=== PATIENT | female | born 1970 | race Caucasian/White ===

== ENCOUNTER 2020-11-10 13:53 | Emergency (ER) | payer OTHER ==
[~2020-11-10 13:53] MED LIST: CLEOCIN HCL150 MG PO; IBUPROFEN800 MG PO; KEFLEX CAP 500500 MG PO; ZOFRAN ODT 4 MG4 MG SL; ZOFRAN4 MG PO
== END 2020-11-10 15:27 | disposition home or self-care (01) ==
LOC: ER1 13:53
DX: M25.552 Pain in left hip (principal); G89.29 Other chronic pain
CPT/HCPCS: 73502; 99283

== ENCOUNTER → 2020-12-13 | Outpatient (CLI) | payer OTHER | LOC: EXRD 10:58 | DX: M54.5 Low back pain (principal); M43.16 Spondylolisthesis, lumbar region; M47.816 Spondylosis without myelopathy or radiculopathy, lumbar region | CPT/HCPCS: 72100 ==